=== PATIENT | female | born 1955 | race Caucasian/White ===

== ENCOUNTER 2023-07-28 15:36 | Emergency (ER) | payer MEDICARE, OTHER ==
[~2023-07-28] VITALS: Ht 162.6 cm; Wt 37.0 kg
[2023-07-28 15:46] VITALS: TEMP 97.3
[2023-07-28] MEDS ORDERED: DILT30TA12 (17:07)
[2023-07-28] MEDS ORDERED: FLUO10CA28 PO (17:07)
[2023-07-28] MEDS ORDERED: GABA300C PO (17:07)
[2023-07-28] MEDS ORDERED: ONDA4TAB12 PO (17:31)
[2023-07-28] MEDS ORDERED: AZIT250T83 PO (17:31)
[2023-07-28] MEDS ORDERED: PRED20TA PO (17:32)
[2023-07-28] MEDS ORDERED: ALBU8HFA INH (17:32)
[2023-07-28 17:51] VITALS: BP 142/78; PULSE 85; RESP 18; O2SAT 97
== END 2023-07-28 17:52 | disposition home or self-care (01) ==
LOC: ER 15:37
DX: J06.9 Acute upper respiratory infection, unspecified (principal); R05.9 Cough, unspecified; R06.02 Shortness of breath; Z91.041 Radiographic dye allergy status; Z88.1 Allergy status to other antibiotic agents; Z88.5 Allergy status to narcotic agent; Z91.013 Allergy to seafood; Z79.899 Other long term (current) drug therapy
CPT/HCPCS: 71045; 99283